=== PATIENT | male | born 1990 | race Caucasian/White ===

== ENCOUNTER 2019-10-19 15:58 | Emergency (ER) | payer MEDICAID ==
[~2019-10-19] VITALS: Ht 154.9 cm; Wt 64.4 kg
[2019-10-19 16:10] VITALS: BP_SYST 122
[2019-10-19] MEDS ORDERED: LIDOCAINE/EPI 2% 1:100000 20 ML VIAL INJ ONE (16:30)
[2019-10-19] MEDS ORDERED: DIPH-TET-PERTUS Vaccine 0.5 ML VIAL (ADACEL) I.M. ONE (17:00)
[2019-10-19] MEDS ORDERED: BACITRACIN 1 GM OINT TP ONE (17:00)
[2019-10-19 19:23] VITALS: BP_SYST 122
== END 2019-10-19 19:22 | disposition home or self-care (01) ==
LOC: SED 15:58
DX: S01.01XA Laceration without foreign body of scalp, initial encounter (principal); R03.0 Elevated blood-pressure reading, without diagnosis of hypertension; E11.9 Type 2 diabetes mellitus without complications; Z88.8 Allergy status to other drugs, medicaments and biological substances; W07.XXXA Fall from chair, initial encounter; Y93.89 Activity, other specified; Y92.89 Other specified places as the place of occurrence of the external cause; Y99.8 Other external cause status
CPT/HCPCS: 12001; 70450; 90471; 90715; 99284; J7030